=== PATIENT | female | born 1990 | race Caucasian/White ===

== ENCOUNTER 2019-05-23 17:13 | Emergency (ER) | payer SELFPAY ==
[2019-05-23 17:44] VITALS: BP 151/93; PULSE 102; RESP 16; TEMP 36.8; O2SAT 98; BMI 41.1
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
[2019-05-23] MEDS: naproxen 500 mg Tablet PO (19:38)
[2019-05-23 19:46] VITALS: PULSE 94; RESP 16; O2SAT 97
== END 2019-05-23 19:46 | disposition home or self-care (01) ==
PROVIDERS: Emergency Provider Emergency Medicine; Family Provider Family Medicine; PCP Family Medicine
DX: S03.2XXA Dislocation of tooth, initial encounter (principal); Y04.2XXA Assault by strike against or bumped into by another person, initial encounter; F17.200 Nicotine dependence, unspecified, uncomplicated
CPT/HCPCS: 12345; 70486; 99281; 99283

== ENCOUNTER 2020-12-09 13:05 | Outpatient (CLI) | payer OTHER, SELFPAY ==
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
--- NOTE | 2020-12-09 13:10 | XR_ITS ---
WS: [id number] Exam: XR thoracic spine 3V* [id number] Date/Time of Exam: 12/09/2020 1:10 PM Reason For Exam: injury No fracture or dislocation. Disc spaces are preserved. Mild levoscoliosis. Normal paraspinal soft tis sues. XR/XR thoracic spine 3V* [id number] IMPRESSION: 1. Slight levoscoliosis otherwise negative T-spine study.
== END 2020-12-09 13:06 | disposition home or self-care (01) ==
LOC: RAD 13:08
PROVIDERS: PCP Family Medicine; Visit Provider Nurse Practitioner
DX: M54.6 Pain in thoracic spine (principal); M54.5 Low back pain; M41.84 Other forms of scoliosis, thoracic region
CPT/HCPCS: 72072; 72100